=== PATIENT | female | born 1975 | race Caucasian/White ===

== ENCOUNTER 2020-01-11 10:48 | Outpatient (CLI) | payer BC, SELFPAY ==
--- NOTE | 2020-01-11 10:55 | MM_ITS ---
WS: [id number] BILATERAL DIGITAL SCREENING MAMMOGRAPHY WITH CAD CLINICAL INFORMATION: SCREENING HISTORY: Screening mammogram. No current complaints. COMPARISON: TECHNIQUE: Bilateral CC and MLO views. FINDINGS: The breasts are composed of heterogeneous fibroglandular density tissue, which can limit the detectio n of small underlying mass lesions. No suspicious mass, asymmetry, calcifications, or architectural d istortion. No evidence of malignancy. MM/[place] [id number] IMPRESSION: BI-RADS: 1-Negative FOLLOW UP: 1 Year Follow-up Recommend return to annual screening mammography.
== END 2020-01-11 10:49 | disposition home or self-care (01) ==
LOC: RADSHAW 10:54
PROVIDERS: PCP Internal Medicine; Visit Provider Internal Medicine
DX: Z12.31 Encounter for screening mammogram for malignant neoplasm of breast (principal)
CPT/HCPCS: 77067

== ENCOUNTER → 2020-01-16 12:51 | Outpatient (BNVA) | payer BC, SELFPAY | PROVIDERS: PCP Internal Medicine; Visit Provider Dermatology | DX: I78.1 Nevus, non-neoplastic (principal); L81.8 Other specified disorders of pigmentation; Z12.83 Encounter for screening for malignant neoplasm of skin | CPT/HCPCS: 99203; 99204 ==

== ENCOUNTER 2021-04-24 08:33 | Outpatient (CLI) | payer BC, SELFPAY ==
--- NOTE | 2021-04-24 08:39 | MM_ITS ---
WS: [id number] BILATERAL DIGITAL SCREENING MAMMOGRAPHY WITH CAD CLINICAL INFORMATION: SCREENING HISTORY: Screening mammogram. No current complaints. COMPARISON: January 11, 2020 TECHNIQUE: Bilateral CC and MLO views. FINDINGS: Scattered fibroglandular densities bilaterally. Region of punctate and amorphous calcifications deep posterior depth right breast at the chest wall appears to be at the 6 clock position on the MLO view near the inframammary folds. These appear new from the prior examination. Recommend diagnostic mammog regina with magnification views. Left breast is unchanged. MM/[place] [id number] IMPRESSION: BI-RADS: 0-Incomplete: Need additional imaging evaluation FOLLOW UP: Need Additional Imaging Recommend spot compression and magnification views of the punctate calcificatio ns posterior depth right breast
== END 2021-04-24 08:34 | disposition home or self-care (01) ==
LOC: RADSHAW 08:37
PROVIDERS: PCP Internal Medicine; Visit Provider Internal Medicine
DX: Z12.31 Encounter for screening mammogram for malignant neoplasm of breast (principal)
CPT/HCPCS: 77067

== ENCOUNTER 2021-06-23 10:41 | Outpatient (CLI) | payer BC, SELFPAY ==
--- NOTE | 2021-06-23 10:50 | MM_ITS ---
WS: [id number] RIGHT DIGITAL MAMMOGRAPHY WITH CAD CLINICAL INFORMATION: RIGHT ABNORMAL MAMMOGRAM COMPARISON: April 24, 2021 TECHNIQUE: 6 views of the right breast were obtained. FINDINGS: Scattered fibroglandular densities of the right breast. Previously described amorphous calcifications in the posterior right breast are no longer visualized today. No suspicious abnormalities. This may have been due to body powder or deodorant. Recommend return to annual screening mammography. MM/[place] [id number] IMPRESSION: BI-RADS: 2-Benign FOLLOW UP: 1 Year Follow-up Recommend return to annual screening mammography.
== END 2021-06-23 10:42 | disposition home or self-care (01) ==
LOC: RADSHAW 10:45
PROVIDERS: PCP Internal Medicine; Visit Provider Internal Medicine
DX: R92.8 Other abnormal and inconclusive findings on diagnostic imaging of breast (principal)
CPT/HCPCS: 77065